=== PATIENT | female | born 1945 | race Caucasian/White ===

== ENCOUNTER → 2017-01-03 | Outpatient (CLI) | payer MEDICARE, OTHER ==
[~2017-01-03] VITALS: Ht 170.2 cm; Wt 106.5 kg
[~2017-01-03] MED LIST: ASPI-1146 PO; D-ME118S13 PO; ESOM20CA31 PO; LORA10TA7 PO; LOSA50TA37 PO; MAGN200T4 PO; MONT10TA21 PO; PSYL660P17 PO; RANI150T7 PO; TRIA10.8 NASAL; TURM500C3 PO; VITA100012 PO
[2017-01-03 14:37] VITALS: BP 130/49
== END | disposition home or self-care (01) ==
LOC: SRCNTR 13:35
PROVIDERS: ATTEND Internal Medicine Critical Care Medicine
DX: J44.9 Chronic obstructive pulmonary disease, unspecified (principal); J01.90 Acute sinusitis, unspecified; E66.01 Morbid (severe) obesity due to excess calories; G47.33 Obstructive sleep apnea (adult) (pediatric); K21.9 Gastro-esophageal reflux disease without esophagitis
CPT/HCPCS: G0463

== ENCOUNTER → 2017-03-07 | Outpatient (CLI) | payer MEDICARE, OTHER ==
[~2017-03-07] VITALS: Ht 170.2 cm; Wt 104.7 kg
[~2017-03-07] MED LIST changes: -TURM500C3 PO; +TURM500C8 PO
[2017-03-07 13:12] VITALS: BP 133/69
== END | disposition home or self-care (01) ==
LOC: SRCNTR 13:02
PROVIDERS: ATTEND Internal Medicine Critical Care Medicine
DX: G47.33 Obstructive sleep apnea (adult) (pediatric) (principal); E66.01 Morbid (severe) obesity due to excess calories; E11.9 Type 2 diabetes mellitus without complications; J01.90 Acute sinusitis, unspecified; J44.1 Chronic obstructive pulmonary disease with (acute) exacerbation; K21.9 Gastro-esophageal reflux disease without esophagitis
CPT/HCPCS: G0463

== ENCOUNTER → 2017-06-08 | Outpatient (CLI) | payer MEDICARE, OTHER ==
[~2017-06-08] VITALS: Ht 170.2 cm; Wt 107.0 kg
[~2017-06-08] MED LIST changes: -LORA10TA7 PO; -TURM500C8 PO
[2017-06-08 11:22] VITALS: BP 123/68
== END | disposition home or self-care (01) ==
LOC: SRCNTR 11:08
PROVIDERS: ATTEND Internal Medicine Critical Care Medicine
DX: E11.9 Type 2 diabetes mellitus without complications (principal); E66.01 Morbid (severe) obesity due to excess calories; G47.33 Obstructive sleep apnea (adult) (pediatric); J01.90 Acute sinusitis, unspecified; J44.1 Chronic obstructive pulmonary disease with (acute) exacerbation; K21.9 Gastro-esophageal reflux disease without esophagitis; I50.9 Heart failure, unspecified; Z79.82 Long term (current) use of aspirin; Z88.0 Allergy status to penicillin
CPT/HCPCS: G0463

== ENCOUNTER → 2017-09-08 | Outpatient (CLI) | payer MEDICARE, OTHER ==
[~2017-09-08] VITALS: Ht 170.2 cm; Wt 112.0 kg
[~2017-09-08] MED LIST changes: -D-ME118S13 PO; +LEVO5TAB29 PO
[2017-09-08 14:24] VITALS: BP 155/77
== END | disposition home or self-care (01) ==
LOC: SRCNTR 14:10
PROVIDERS: ATTEND Internal Medicine
DX: J44.9 Chronic obstructive pulmonary disease, unspecified (principal); G47.33 Obstructive sleep apnea (adult) (pediatric); E66.9 Obesity, unspecified; J32.9 Chronic sinusitis, unspecified; K21.9 Gastro-esophageal reflux disease without esophagitis; Z88.0 Allergy status to penicillin; Z88.2 Allergy status to sulfonamides
CPT/HCPCS: G0463

== ENCOUNTER → 2017-11-14 | Outpatient (CLI) | payer MEDICARE, OTHER ==
[~2017-11-14] VITALS: Ht 170.2 cm; Wt 111.0 kg
[2017-11-14 12:08] VITALS: BP 126/68
== END | disposition home or self-care (01) ==
LOC: SRCNTR 12:05
PROVIDERS: ATTEND Internal Medicine Critical Care Medicine
DX: G47.33 Obstructive sleep apnea (adult) (pediatric) (principal); E66.01 Morbid (severe) obesity due to excess calories; J01.90 Acute sinusitis, unspecified; J44.1 Chronic obstructive pulmonary disease with (acute) exacerbation; K21.9 Gastro-esophageal reflux disease without esophagitis
CPT/HCPCS: G0463

== ENCOUNTER → 2018-02-27 | Outpatient (CLI) | payer MEDICARE, OTHER ==
[~2018-02-27] VITALS: Ht 170.2 cm; Wt 110.0 kg
[~2018-02-27] MED LIST changes: +LIRA0.6P SQ; +MEMA5 PO; +MOME17N NASAL
[2018-02-27 11:43] VITALS: BP 126/59
== END | disposition home or self-care (01) ==
LOC: SRCNTR 11:41
PROVIDERS: ATTEND Internal Medicine Critical Care Medicine
DX: J44.1 Chronic obstructive pulmonary disease with (acute) exacerbation (principal); E66.01 Morbid (severe) obesity due to excess calories; G47.33 Obstructive sleep apnea (adult) (pediatric); J01.90 Acute sinusitis, unspecified; K21.9 Gastro-esophageal reflux disease without esophagitis
CPT/HCPCS: G0463

== ENCOUNTER → 2018-06-02 | Outpatient (CLI) | payer MEDICARE, OTHER ==
[~2018-06-02] VITALS: Ht 170.2 cm; Wt 109.0 kg
[~2018-06-02] MED LIST changes: +GABA-529 PO; +TIZA4TAB4 PO
[2018-06-02 13:22] VITALS: BP 130/71
== END | disposition home or self-care (01) ==
LOC: SRCNTR 12:32
PROVIDERS: ATTEND Internal Medicine Critical Care Medicine
DX: J44.1 Chronic obstructive pulmonary disease with (acute) exacerbation (principal); E66.01 Morbid (severe) obesity due to excess calories; G47.33 Obstructive sleep apnea (adult) (pediatric); J01.90 Acute sinusitis, unspecified; K21.9 Gastro-esophageal reflux disease without esophagitis; M25.511 Pain in right shoulder; M47.894 Other spondylosis, thoracic region; E11.9 Type 2 diabetes mellitus without complications; I11.0 Hypertensive heart disease with heart failure; I50.9 Heart failure, unspecified; Z88.0 Allergy status to penicillin; Z88.2 Allergy status to sulfonamides
CPT/HCPCS: G0463

== ENCOUNTER → 2018-11-28 | Outpatient (CLI) | payer MEDICARE, OTHER ==
[~2018-11-28] VITALS: Ht 170.2 cm; Wt 111.0 kg
[~2018-11-28] MED LIST changes: -LOSA50TA37 PO; +LOSA50TA64 PO; -TRIA10.8 NASAL
[2018-11-28 11:02] VITALS: BP 155/75
== END | disposition home or self-care (01) ==
LOC: SRCNTR 10:45
PROVIDERS: ATTEND Internal Medicine Critical Care Medicine
DX: G47.33 Obstructive sleep apnea (adult) (pediatric) (principal); E66.01 Morbid (severe) obesity due to excess calories; J01.90 Acute sinusitis, unspecified; J44.1 Chronic obstructive pulmonary disease with (acute) exacerbation
CPT/HCPCS: G0463

== ENCOUNTER → 2021-03-05 | Outpatient (CLI) | payer MEDICARE, OTHER ==
[~2021-03-05] VITALS: Ht 165.1 cm; Wt 116.0 kg
[~2021-03-05] MED LIST changes: +GABA-1216 PO; -GABA-529 PO; +LOSA50TA37 PO; -LOSA50TA64 PO; +MONT-35 PO; -MONT10TA21 PO; -TIZA4TAB4 PO; +TIZA4TAB6 PO
[2021-03-05 11:09] VITALS: BP 135/65
== END | disposition home or self-care (01) ==
LOC: SRCNTR 10:39
PROVIDERS: ATTEND Internal Medicine Critical Care Medicine
DX: J44.1 Chronic obstructive pulmonary disease with (acute) exacerbation (principal); K21.9 Gastro-esophageal reflux disease without esophagitis; J01.90 Acute sinusitis, unspecified; G47.33 Obstructive sleep apnea (adult) (pediatric); E66.01 Morbid (severe) obesity due to excess calories
CPT/HCPCS: G0463